=== PATIENT | male | born 1945 | race Caucasian/White ===

== ENCOUNTER 2018-07-13 14:50 | Inpatient (IN) | payer OTHER ==
[~2018-07-13] VITALS: Ht 170.2 cm; Wt 56.7 kg
[2018-07-13 14:50] VITALS: BP 131/87
[~2018-07-13 14:50] MED LIST: ADULT LOW DOSE81 MG PO; CLONIDINE0.1 PO; CRESTOR5 MG; DEXILANT60 MG PO; FLEXERIL PO; IBUPROFEN 200200 M1 PO; KEFLEX500 MG PO; LEVAQUIN 500 M500 M2 PO; LEVAQUIN 750 M750 MG PO; LIDODERM 5%1 PATCH TOP; LIPITOR 20 MG T20 M1 PO; MEGESTROL ACETA40 MG PO; MIRALAX17 GM PO; MIRALAX255 GM PO; NORVASC 5 MG TAB5 MG PO; OMEPRAZOLE 20 M20 MG PO; OXYCONTIN30 MG PO; PERCOCET 5-3251 EACH PO; PREDNISONE 10 M10 M1 PO; PREDNISONE 10 M10 MG PO; PRINIVIL5 MG PO; PROAIR HFA8.5 GM INH; PROVENTIL HFA6.7 G1 INH; REGLAN 5 MG TAB5 MG PO; REMERON15 MG PO; ROBAXIN 750 MG750 M1 PO; ROXICODONE30 MG PO; SPIRIVA INH; TRAZODONE HCL100 MG PO; VENTOLIN HFA 1818 GM INH; ZOFRAN ODT4 MG PO; ZPAK PO
[2018-07-13 15:06] LABS: HEMATOCRIT 40.8 % (42.0-52.0); HEMOGLOBIN 13.8 gm/dL (14.0-18.0); MCH 32.1 pg (26.0-34.0); MCHC 33.7 g/dL (28.0-37.0); MCV 95.2 fL (80.0-100.0); MPV 7.7 fl. (7.2-11.1); NUCLEATED RBCS 0 /100WBC; PLATELET COUNT* 212 thou/uL (150-400); RBC 4.29 mil/uL (4.50-6.00); WBC 6.3 thou/uL (4.0-11.0)
[2018-07-13 15:16] LABS: ANION GAP 2 mmol/L (7-16); BUN 18 mg/dL (7-18); CALCIUM 9.3 mg/dL (8.5-10.1); CHLORIDE 98 mmol/L (98-107); CO2 37 mmol/L (21-32); GLUCOSE 143 mg/dL (70-99); SODIUM 137 mmol/L (136-145)
[2018-07-13 15:17] LABS: APTT 26.2 Seconds (25.0-31.3); PROTIME 10.6 Seconds (9.20-11.50)
[2018-07-13 15:22] LABS: BE 5.4 mmol/L (-2 to +3); HCO3 31.4 mmol/L (22.0-26.0); PO2 103.7 mmHg (75.0-100.0); pH 7.401 (7.340-7.450)
[2018-07-13 15:24] LABS: ALKALINE PHOSPHATASE 86 U/L (46-116); SGOT 25 U/L (15-37); SGPT 20 U/L (30-65); TOTAL BILIRUBIN 0.4 mg/dL (<0.1-1.0); TOTAL PROTEIN 7.9 g/dL (6.4-8.2); TROPONIN-I LEVEL <0.06 ng/mL (<0.06)
[2018-07-13 15:25] LABS: PCO2 51.7 mmHg (35.0-45.0)
[2018-07-13 15:42] LABS: ABSOLUTE LYMPHOCYTES 0.5 thou/uL (0.8-5.3); ABSOLUTE MONOCYTES 0.1 thou/uL (0.0-1.2); ABSOLUTE NEUTROPHILS 5.7 thou/uL (1.6-8.1); PLATELET ESTIMATE ADEQUATE
[2018-07-13 18:30] VITALS: BP 128/66
[2018-07-13 18:58] VITALS: BP 104/64
--- NOTE | 2018-07-13 19:00 | NUR ---
PATIENT CAME TO THE FLOOR FROM THE ER VIA CART AND AMBULATED TO BED. GAIT WAS STEADY. VITAL SIGNS STABLE ON 4 LITERS OF OXYGEN. ROOM EDUCATION DONE AND BAX LUNCH GIVEN TO PATIENT. CALL LIGHT IS IN REACH, WILL PASS ON REPORT AND MONITOR UNTIL SHIFT CHANGE.
[2018-07-13] MEDS ORDERED: ZANAFLEX4 MG PO (20:13)
[2018-07-13] MEDS ORDERED: OXYCONTIN40 MG PO (20:15)
[2018-07-13] MEDS ORDERED: BUSPIRONE HCL10 MG (20:16)
[2018-07-13] MEDS ORDERED: PREDNISONE 10 M10 MG (20:18)
[2018-07-13] MEDS ORDERED: LASIX 20 MG TAB20 MG (20:28)
[2018-07-14] VITALS: BP 110/64
[2018-07-14 04:20] LABS: HEMATOCRIT 32.7 % (42.0-52.0); MCH 32.5 pg (26.0-34.0); MCHC 34.3 g/dL (28.0-37.0); MCV 94.9 fL (80.0-100.0); MPV 8.2 fl. (7.2-11.1); RBC 3.44 mil/uL (4.50-6.00); RDW-CV 13.7 % (10.5-14.5); WBC 4.4 thou/uL (4.0-11.0)
[2018-07-14 04:26] LABS: HEMOGLOBIN 11.2 gm/dL (14.0-18.0)
[2018-07-14 05:11] LABS: URINE BILIRUBIN NEGATIVE (Negative); URINE BLOOD NEGATIVE (Negative); URINE CLARITY CLEAR; URINE COLOR YELLOW; URINE GLUCOSE-RANDOM 1+ (Negative); URINE KETONES NEGATIVE (Negative); URINE LEUKOCYTES NEGATIVE (Negative); URINE NITRITE NEGATIVE (Negative); URINE PROTEIN NEGATIVE (Negative); URINE SPECIFIC GRAVITY <= 1.005 (1.005-1.030); URINE UROBILINOGEN 0.2 E.U./dl (0.2-1.0)
[2018-07-14 05:19] LABS: CALCIUM 8.9 mg/dL (8.5-10.1); CREATININE 0.9 mg/dL (0.6-1.3); POTASSIUM 4.1 mmol/L (3.5-5.1); TOTAL BILIRUBIN 0.3 mg/dL (<0.1-1.0); TOTAL PROTEIN 5.8 g/dL (6.4-8.2)
--- NOTE | 2018-07-14 06:52 | NUR ---
PT SLEPT WELL OVERNIGHT. RECEIVING PAIN MED AT HS WITH GOOD RESULT. O2 4LNC, RT TX GIVEN ORDERED. LAC IVF INFUSING PER PUMP, ABX GIVEN. USING URINAL TO VOID OVERNIGHT,URINE SENT TO LAB. AM LABS DRAWN. BED ALARM ON FOR SAFETY.
[2018-07-14 08:15] VITALS: BP 106/63
[2018-07-14 15:15] VITALS: BP 95/59
--- NOTE | 2018-07-14 16:16 | NUR ---
SW met with pt to complete initial assessment, introduce self, and SW role. Pt lives at home with his and dtr. Pt does not have any hx HH. Pt has oxygen at home, cane, nebulizer. Pt alert, oriented, pleasant. Pt doesn't anticipate any dc needs at this time. SW to continue to follow to assist with safe dc planning.
--- NOTE | 2018-07-14 17:32 | NUR ---
PATIENT IS ALERT AND ORIENTED TODAY PLEASANT BUT VERY ANXIOUS. MEDICATIONS GIVEN WITH SOME RELIEF, PATIENT WENT TO SLEEP. SOME COMPLAINTS OF PAIN THAT IS SOMEWHAT CONTROLLED WITH ORAL PAIN MEDICATIONS, CHRONIC PAIN. VITAL SIGNS HAVE BEEN STABLE ON 4 LITERS OF OXYGEN THROUGH NASAL CANNULA. CALL LIGHT IS IN REACH, WILL CONTINUE TO MONITOR.
--- NOTE | 2018-07-14 17:58 | EKG ---
[place] [address] ELECTROCARDIOGRAM REPORT Name: CASSY ARTEAGA Room: [address] ADM IN ..#: [id number] Admission: 07/13/18 Attend Phys: Carmela Senior MD Discharge: Date of : 45 Report #: [id number] THIS REPORT FOR: //name// [facility] ED Test Date: 2018-07-13 Test Time: 14:53:54 Pat Name: CASSY AMOSTZ Department: Room: [facility] Gender: Bandoleer Straightener Stamper: Abdi AWAD : 1945 Requested By: Gerri Wells Order Number: [id number] MD: Gucci Dougherty Measurements Intervals [place] Rate: 91 P: 82 PA: 144 QRS: 82 QRSD: 84 T: 22 QT: 354 QTc: 436 Interpretive Statements Sinus rhythm Ventricular bigeminy Borderline right axis deviation Compared to ECG 08/22/2017 19:26:36 Ventricular premature complex(es) now present Electronically Signed On 07-14-2018 17:58:19 CDT by Gucci Dougherty [email or web address] <ELECTRONICALLY SIGNED> By: Gucci Dougherty MD, FACC 07/14/18 1758 1453 1453 Gucci Dougherty MD, FAC /EPI
[2018-07-14 20:30] VITALS: BP 113/61
--- NOTE | 2018-07-15 05:13 | NUR ---
PATIENT SLEPT MOST OF THE NIGHT. IV REMAINS SALINE LOCKED. PATIENT REMAINS ON OXYGEN AT 4L PER NASAL CANNULA. WILL CONTINUE TO MONITOR.
[2018-07-15] MEDS ORDERED: AZITHROMYCIN 2250 MG PO (10:28)
[2018-07-15] MEDS ORDERED: PREDNISONE 5 MG5 M1 PO (10:29)
[2018-07-15 10:30] VITALS: BP 113/61
[2018-07-15 10:33] VITALS: BP 113/61
--- NOTE | 2018-07-15 11:26 | NUR ---
PATIENT HAS BEEN ALERT AND ORIENTED TODAY VERY PLEASANT HAVING SOME ANXIETY STILL. VITAL SIGNS STABLE ON 4 LITERS OF OXYGEN. PAIN THAT CHRONIC. PATIENT IS UP AD RENNY IN ROOM WITH OXYGEN TUBING EXTENSION. PATIETN IS BEING DISCHARGED TO HOME. DISCHARGE INSTRUCTIONS GIVEN WITH PRESCRIPTIONS, QUESTIONS ANSWERED FOR PATIENT AND FAMILY. LEFT VIA WHEELCHAIR WITH TO HOME. BROUGHT PATIENTS PORTABLE OXYGEN FOR THE RIDE HOME.
[2018-07-15 11:28] VITALS: BP 113/61
--- NOTE | 2018-07-17 08:18 | CON ---
[address] [address] CONSULTATION Name: ESTELITA ARTEAGAACE Abdi Room: [address] IN M.R.#: [id number] Admission: 07/13/18 Attend Phys: Carmela Senior MD Discharge: 07/15/18 Date of : 45 Report #: [id number] THIS REPORT FOR: //name// CC: Alyssa Senior REQUESTING PHYSICIAN: Carmela Senior MD REASON FOR CONSULTATION: Pleural thickening, evaluate for asbestos exposure. DISCUSSION: The patient is a 72-year-old man who has a history of tobacco abuse and COPD. He is steroid and O2 dependent. He usually follows with Dr. Crystal Mendez. He was admitted with several days of increasing shortness of breath. He may have had some fevers at home. Cough, but really not able to get up much mucus. No hemoptysis. He is up-to-date with his pneumonia vaccine and he just had his influenza vaccine. He felt worse than what he normally does and presented to the ED yesterday when he was subsequently admitted. I have none of his prior PFTs. He and his notes that he has been told that he has stage 3 (I presume GOLD stage 3). He is on O2 at 4 liters continuously at home. He is also on prednisone 10 mg a day. He uses Spiriva daily, has a nebulizer with albuterol that he does opt to least 3 times a day and carries an albuterol inhaler with him. In the past, he was on a Trelegy inhaler, though it did not offer him any additional benefit and he is no longer on that. Denies being on Symbicort, Advair, Dulera or Breo. He continues to smoke. He is somewhat vague as to the amount noting only that it is "occasional cigarette." His does not smoke. They do have other smokers at home, though that typically smoke in the garage. He has smoked at least a pack of cigarettes per day in the past. When he was evaluated yesterday in the ED, he did have a CT scan done of his chest. It showed marked emphysematous changes. It was negative for pulmonary embolism. However, he did have some mild pleural thickening noted with possible subtle calcification, thought to perhaps reflect asbestos-related pleural disease, which is only reason we were asked to see him. He does get short of breath with exertion. His breathing is somewhat better today relative to what it was. His secretions are quite thick. No hemoptysis. No actual chest pain though he does complain of abdominal pain. He believes he has a hernia, which is exacerbated when he is up moving around more. He has lost weight this year. Somewhat vague as to the amount. Typically does not have much appetite. Has some intermittent difficulty swallowing. He did deliveries. He believes he may have had asbestos exposure at one point when a building where a shed was torn down. 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 PAST MEDICAL HISTORY: Besides COPD is remarkable for chronic neck pain. He has had a fusion. He has difficulty trying to carry objects that are very heavy because of that. He has had hernia repair, is on chronic opiates. Prior scans have also showed dilated biliary tree. SOCIAL HISTORY: He is . Smoker as noted. Occupational exposure as noted above. FAMILY HISTORY: Positive for heart disease. REVIEW OF SYSTEMS: A 12-point ROS was done. No positives as above. He has had the weight loss. No recent nausea or vomiting. Denies any diarrhea or blood in the stools. Does have dysphagia. Also has trouble swallowing large pills. He has had a weight loss. He notes pain down his left lower quadrant when he is up walking more, believes due to hernia. No issues with lower extremity edema. No syncopal episodes. Secretions are quite thick. He is hard of hearing. PHYSICAL EXAMINATION: GENERAL APPEARANCE: A man, looks stated age, if not older. His is at the bedside. HEENT: Head is normocephalic. Sclerae nonicteric. Mucous membranes little dry. NECK: Negative for adenopathy. No JVD is noted. Neck muscles well developed. HEART: Tones are distant and regular. No S3 is heard. LUNGS: Show breath sounds to be diminished with a prolonged expiratory phase. Scattered expiratory wheezes heard. Excursion is equal. ABDOMEN: Soft. No definite hepatosplenomegaly is noted. EXTREMITIES: He has no clubbing. Lower extremities are negative for significant edema. He has no calf tenderness noted. SKIN: Warm and dry. NEUROLOGIC: Alert and oriented times 3. IMAGING DATA: His films were reviewed. He has marked emphysematous changes. He does have older CAT scans available. When these were reviewed, dating back several years ago, he has had some mild pleural thickening noted previously. Potential for some minimal calcification seen primarily on an area anteriorly, left hemithorax anteriorly. No dominant masses are noted. No significant pleural effusions. Echocardiogram done a year ago revealed normal systolic function with an EF of 60%-65%. Did have grade 1 diastolic dysfunction. RV was normal. LABORATORY DATA: On his chemistries: Potassium is 4.1, BUN 19, creatinine 0.9, albumin 3.0, total protein 5.8, white blood cell count 4400, hemoglobin 11.2, hematocrit 32.7, platelets are normal. Arterial blood gases done yesterday on [address] [place] [address] CONSULTATION Name: CASSY ARTEAGA Room: [address]#: [id number] Admission: 07/13/18 Attend Phys: Carmela Senior MD Discharge: 07/15/18 Date of : 45 Report #: [id number] L. He had a pH 7.40, pCO2 of 52, pO2 104, bicarbonate of 31 with saturation 95%. Carboxyhemoglobin was 2.4%. IMPRESSION: 1. Chronic obstructive pulmonary disease exacerbation. Remains bronchospastic. 2. Chronic obstructive pulmonary disease. At baseline, he appears to have severe disease. He is steroid and O2 dependent. He is also hypercapnic and hypoxic. 3. Mild pleural thickening. No evidence of mesothelioma. 4. Weight loss, may have pulmonary cachexia. 5. Tobacco abuse. He is not smoking nearly as much as what he has in the past. However, continued smoking will certainly contribute to more frequent infections, as well as accelerated decline and worsening of his underlying chronic obstructive pulmonary disease. 6. History of hypertension. RECOMMENDATIONS: 1. Complete smoking cessation. 2. While he is here, continue with IV steroids. Add oral guaifenesin. He has trouble with the pill, so we will use liquid. 3. DuoNeb every 4 hours. 4. IV steroids. 5. Note he has followup appointment scheduled for early July with his primary board saw runner and Dr. Lozano, his boat motor mechanic and he will keep those appointments once he is discharged. <ELECTRONICALLY SIGNED> By: Lacey Mckeon MD 07/17/18 0818 1228 0354Lacey Mckeon MD /nt
== END 2018-07-15 11:35 | disposition home or self-care (01) | DRG 189 ==
LOC: M.ERS 14:50 → M.3W 17:45 → M.TBA-ER 17:45 → M.3W 18:46
PROVIDERS: Nurse Practitioner Family; ADMIT Internal Medicine
DX: J96.21 Acute and chronic respiratory failure with hypoxia (principal); J44.1 Chronic obstructive pulmonary disease with (acute) exacerbation; J96.22 Acute and chronic respiratory failure with hypercapnia; F41.9 Anxiety disorder, unspecified; F17.210 Nicotine dependence, cigarettes, uncomplicated; I10 Essential (primary) hypertension; M47.9 Spondylosis, unspecified; Z79.82 Long term (current) use of aspirin; Z88.8 Allergy status to other drugs, medicaments and biological substances; Z99.81 Dependence on supplemental oxygen; Z87.442 Personal history of urinary calculi; Z82.49 Family history of ischemic heart disease and other diseases of the circulatory system; Z71.6 Tobacco abuse counseling; Z87.01 Personal history of pneumonia (recurrent); Z98.1 Arthrodesis status

== ENCOUNTER 2018-08-09 14:20 | Emergency (ER) | payer OTHER ==
[~2018-08-09] VITALS: Ht 170.2 cm; Wt 52.2 kg
[~2018-08-09 14:20] MED LIST changes: +AZITHROMYCIN 2250 MG PO; +BUSPIRONE HCL10 MG; +LASIX 20 MG TAB20 MG; +OXYCONTIN40 MG PO; +PREDNISONE 10 M10 MG; +PREDNISONE 5 MG5 M1 PO; +ZANAFLEX4 MG PO
[2018-08-09] MEDS ORDERED: OMEPRAZOLE40 MG PO (14:39)
[2018-08-09] MEDS ORDERED: TRELEGY ELLIPT1 EACH INH (14:39)
[2018-08-09 15:43] LABS: ABSOLUTE BASOPHILS 0.1 thou/uL (0.0-0.2); ABSOLUTE LYMPHOCYTES 1.5 thou/uL (0.8-5.3); ABSOLUTE MONOCYTES 0.7 thou/uL (0.0-1.2); ABSOLUTE NEUTROPHILS 10.8 thou/uL (1.6-8.1); BASOPHILS 0.7 %; EOSINOPHILS 0.3 %; HEMATOCRIT 43.9 % (42.0-52.0); HEMOGLOBIN 14.5 gm/dL (14.0-18.0); LYMPHOCYTES 11.1 %; MCH 31.4 pg (26.0-34.0); MCHC 33.1 g/dL (28.0-37.0); MCV 94.9 fL (80.0-100.0); MONOCYTES 5.4 %; MPV 7.8 fl. (7.2-11.1); NUCLEATED RBCS 0 /100WBC; PLATELET COUNT* 289 thou/uL (150-400); POLYS 82.5 %; RBC 4.62 mil/uL (4.50-6.00); WBC 13.1 thou/uL (4.0-11.0)
[2018-08-09 15:56] LABS: APTT 25.4 Seconds (25.0-31.3); PROTIME 10.7 Seconds (9.20-11.50)
[2018-08-09 15:57] LABS: ANION GAP 11 mmol/L (7-16); BUN 19 mg/dL (7-18); CALCIUM 9.6 mg/dL (8.5-10.1); CHLORIDE 98 mmol/L (98-107); CO2 30 mmol/L (21-32); CREATININE 1.1 mg/dL (0.6-1.3); GLUCOSE 95 mg/dL (70-99); POTASSIUM 3.8 mmol/L (3.5-5.1); SODIUM 139 mmol/L (136-145)
[2018-08-09 16:15] LABS: ALBUMIN 4.3 g/dL (3.4-5.0); ALKALINE PHOSPHATASE 101 U/L (46-116); LIPASE 89 U/L (73-393); NT-PRO BRAIN NAT PEPTIDE 504 pg/mL (<300); SGOT 29 U/L (15-37); SGPT 19 U/L (30-65); TOTAL BILIRUBIN 0.6 mg/dL (<0.1-1.0); TOTAL PROTEIN 7.9 g/dL (6.4-8.2); TROPONIN-I LEVEL <0.06 ng/mL (<0.06)
--- NOTE | 2018-08-09 17:40 | EKG ---
[place] [address] ELECTROCARDIOGRAM REPORT Name: CASSY ARTEAGA Room: [facility]#: [id number] Admission: 08/09/18 Attend Phys: Discharge: Date of : 45 Report #: [id number] THIS REPORT FOR: //name// [facility] ED Test Date: 2018-08-09 Test Time: 14:28:56 Pat Name: CASSY AMOSTZ Department: Room: Gender: Weaver Hand: : 1945 Requested By: Carol Potts Order Number: [id number] MD: Gucci Dougherty Measurements Intervals [place] Rate: 100 P: 83 MN: 125 QRS: 84 QRSD: 100 T: -8 QT: 323 QTc: 417 Interpretive Statements Sinus tachycardia Multiple ventricular premature complexes Borderline right axis deviation Borderline T abnormalities, inferior leads Compared to ECG 07/13/2018 14:53:54 Sinus rhythm no longer present Electronically Signed On 08-09-2018 17:39:58 CREATIVE CONSULTANT by Gucci Dougherty [email or web address] <ELECTRONICALLY SIGNED> By: Gucci Dougherty MD, [facility] 08/09/18 1739 1428 142 Gucci Dougherty MD, FACC /EPI
[2018-08-09] MEDS ORDERED: ATIVAN0.5 M1 PO (18:33)
[2018-08-09 18:55] VITALS: BP 171/96
== END 2018-08-09 18:56 | disposition home or self-care (01) ==
LOC: M.ERS 14:20
PROVIDERS: Personal Emergency Response Attendant
DX: F41.9 Anxiety disorder, unspecified (principal); J44.9 Chronic obstructive pulmonary disease, unspecified; F17.210 Nicotine dependence, cigarettes, uncomplicated; Z88.8 Allergy status to other drugs, medicaments and biological substances

== ENCOUNTER 2018-08-23 13:54 | Inpatient (IN) | payer OTHER ==
[~2018-08-23] VITALS: Ht 170.2 cm; Wt 54.9 kg
[~2018-08-23 13:54] MED LIST changes: +ATIVAN0.5 M1 PO; -BUSPIRONE HCL10 MG; +BUSPIRONE HCL10 MG PO; -LASIX 20 MG TAB20 MG; +LASIX 20 MG TAB20 MG PO; +OMEPRAZOLE40 MG PO; +TRELEGY ELLIPT1 EACH INH
[2018-08-23 14:09] VITALS: BP 158/79
[2018-08-23 14:30] LABS: HEMATOCRIT 41.5 % (42.0-52.0); HEMOGLOBIN 13.9 gm/dL (14.0-18.0); MCH 31.7 pg (26.0-34.0); MCHC 33.4 g/dL (28.0-37.0); MCV 94.8 fL (80.0-100.0); MPV 7.3 fl. (7.2-11.1); NUCLEATED RBCS 0 /100WBC; PLATELET COUNT* 289 thou/uL (150-400); RBC 4.38 mil/uL (4.50-6.00); RDW-CV 13.4 % (10.5-14.5); WBC 9.5 thou/uL (4.0-11.0)
[2018-08-23 14:39] LABS: ANION GAP 8 mmol/L (7-16); BUN 14 mg/dL (7-18); CALCIUM 9.5 mg/dL (8.5-10.1); CHLORIDE 97 mmol/L (98-107); CO2 35 mmol/L (21-32); GLUCOSE 97 mg/dL (70-99); POTASSIUM 3.7 mmol/L (3.5-5.1); SODIUM 140 mmol/L (136-145)
[2018-08-23 14:42] LABS: APTT 24.9 Seconds (25.0-31.3); PROTIME 10.1 Seconds (9.20-11.50)
[2018-08-23 14:52] LABS: ALBUMIN 3.8 g/dL (3.4-5.0); ALKALINE PHOSPHATASE 96 U/L (46-116); LIPASE 85 U/L (73-393); NT-PRO BRAIN NAT PEPTIDE 350 pg/mL (<300); SGOT 18 U/L (15-37); SGPT 18 U/L (30-65); TOTAL BILIRUBIN 0.5 mg/dL (<0.1-1.0); TOTAL PROTEIN 7.2 g/dL (6.4-8.2); TROPONIN-I LEVEL <0.06 ng/mL (<0.06)
[2018-08-23 15:04] LABS: ABSOLUTE LYMPHOCYTES 0.7 thou/uL (0.8-5.3); ABSOLUTE MONOCYTES 0.6 thou/uL (0.0-1.2); ABSOLUTE NEUTROPHILS 8.3 thou/uL (1.6-8.1); ATYPICAL MONONUCLEARS 4 %; PLATELET ESTIMATE ADEQUATE
[2018-08-23 18:16] VITALS: BP 154/80
[2018-08-23 18:40] VITALS: BP 151/79
[2018-08-23 20:00] VITALS: BP 157/79
[2018-08-23 20:30] LABS: BE 6.1 mmol/L (-2 to +3); PCO2 45.7 mmHg (35.0-45.0); PO2 106.1 mmHg (75.0-100.0); pH 7.449 (7.340-7.450)
[2018-08-24] VITALS: BP 114/66
[2018-08-24 02:29] LABS: ABSOLUTE EOSINOPHILS 0.1 thou/uL (0.0-0.7); ABSOLUTE LYMPHOCYTES 0.5 thou/uL (0.8-5.3); ABSOLUTE MONOCYTES 0.2 thou/uL (0.0-1.2); ABSOLUTE NEUTROPHILS 6.6 thou/uL (1.6-8.1); BASOPHILS 0.3 %; EOSINOPHILS 0.8 %; HEMATOCRIT 34.8 % (42.0-52.0); LYMPHOCYTES 7.1 %; MCH 31.8 pg (26.0-34.0); MCHC 33.7 g/dL (28.0-37.0); MCV 94.4 fL (80.0-100.0); MONOCYTES 2.4 %; MPV 6.8 fl. (7.2-11.1); NUCLEATED RBCS 0 /100WBC; PLATELET COUNT* 230 thou/uL (150-400); POLYS 89.4 %; RBC 3.69 mil/uL (4.50-6.00); RDW-CV 13.2 % (10.5-14.5); WBC 7.4 thou/uL (4.0-11.0)
[2018-08-24 02:36] LABS: CREATININE 0.9 mg/dL (0.6-1.3); MAGNESIUM 2.5 mg/dL (1.8-2.4); POTASSIUM 4.1 mmol/L (3.5-5.1)
[2018-08-24 03:19] LABS: HEMOGLOBIN 11.7 gm/dL (14.0-18.0)
[2018-08-24 04:00] VITALS: BP 136/60
[2018-08-24 07:50] VITALS: BP 117/59
[2018-08-24 11:42] VITALS: BP 103/61
[2018-08-24 16:02] VITALS: BP 148/84
--- NOTE | 2018-08-24 17:44 | EKG ---
[place] [address] ELECTROCARDIOGRAM REPORT Name: CASSY ARTEAGA Room: [address] ADM IN M.R.#: [id number] Admission: 08/23/18 Attend Phys: Zander Coburn MD Discharge: Date of : 45 Report #: [id number] THIS REPORT FOR: //name// [facility] ED Test Date: 2018-08-23 Test Time: 13:59:18 Pat Name: CASSY ARTEAGA Department: Room: [facility] Gender: M Manager Food Beverage: : 1945 Requested By: Carol Potts Order Number: [id number] MD: Mario Benitez Measurements Intervals [place] Rate: 88 P: 75 FL: 179 QRS: 80 QRSD: 98 T: 12 QT: 350 QTc: 424 Interpretive Statements Sinus rhythm Ventricular premature complex Compared to ECG 08/09/2018 14:28:56 Sinus tachycardia no longer present T-wave abnormality no longer present Electronically Signed On 08-24-2018 17:44:13 TIMBER SIZER OPERATOR by Mario Benitez [email or web address] <ELECTRONICALLY SIGNED> By: Mario Benitez MD, FACC 08/24/18 1744 1359 1359 Mario Benitez MD, FAC /EPI
--- NOTE | 2018-08-24 17:47 | EKG ---
[place] [address] ELECTROCARDIOGRAM REPORT Name: CASSY ARTEAGA Room: [address] ADM IN M.R.#: [id number] Admission: 08/23/18 Attend Phys: Zander Coburn MD Discharge: Date of : 45 Report #: [id number] THIS REPORT FOR: //name// [facility] Test Date: 2018-08-24 Test Time: 03:28:48 Pat Name: CASSY ARTEAGA Department: Room: [address] Gender: M Complaint Adjuster: : 1945 Requested By: Zander Coburn Order Number: [id number] Reading MD: Mario Benitez Measurements Intervals [place] Rate: 68 P: 81 VT: 135 QRS: 83 QRSD: 102 T: 44 QT: 422 QTc: 449 Interpretive Statements Sinus rhythm Borderline right axis deviation Minimal ST elevation, anterior leads, consider early repolarization Compared to ECG 08/09/2018 14:28:56 ST (T wave) deviation now present Sinus tachycardia no longer present Ventricular premature complex(es) no longer present T-wave abnormality no longer present Electronically Signed On 08-24-2018 17:47:40 POT RELINER by Mario Benitez [email or web address] <ELECTRONICALLY SIGNED> By: Mario Benitez MD, FACC 08/24/18 1747 0328 0328 Mario Benitez MD, FACC /EPI
[2018-08-24 20:00] VITALS: BP 126/70
[2018-08-25] VITALS: BP 103/56
[2018-08-25 04:00] VITALS: BP 109/61
[2018-08-25 08:00] VITALS: BP 152/53
[2018-08-25] MEDS ORDERED: AZITHROMYCIN 2250 MG PO ×2 (11:33)
[2018-08-25] MEDS ORDERED: SENNA PLUS TAB1 EACH PO ×2 (11:34)
[2018-08-25 12:25] VITALS: BP 101/54
[2018-08-25 12:31] VITALS: BP 101/54
--- NOTE | 2018-08-26 06:30 | CON ---
[address] [address] CONSULTATION Name: CASSY ARTEAGA Room: [address] IN .R.#: [id number] Admission: 08/23/18 Attend Phys: Zander Coburn MD Discharge: 08/25/18 Date of : 45 Report #: [id number] THIS REPORT FOR: //name// CC: Alyssa Coburn REQUESTING PHYSICIAN: Dr. Coburn. REASON FOR CONSULTATION: Shortness of breath, COPD, chest pain. DISCUSSION: The patient is a 72-year-old male with long history of tobacco abuse and significant COPD. He notes his last cigarette was about a week ago. He was hospitalized here in June and our group did see him at that time. He has had at least one additional ED visit since that hospital stay. He presented to the Emergency Department yesterday afternoon with complaints of shortness of breath. He notes he was having trouble getting his air. He took a breathing treatment without any improvement. He has also been having chest pain. He is not the best historian. At times, he tends to ramble. He notes he has been having the chest pain. He points to his mid chest, notes it would radiate up to his left shoulder and left neck area. When asked what may bring it on or make it worse, he noted activity and that if he stops what he was doing, it did improve. It has not awoken him at night. He has some cough with scant sputum production. No hemoptysis. He has intermittently been wheezing. Unfortunately, he really cannot tell me exactly what inhalers he uses at home. He is on O2 18/04. He follows with Dr. Crystal Mendez from a Pulmonary Service. He does have a nebulizer. I presume it is at least albuterol if not combination of albuterol and ipratropium bromide or any steroid dependent in addition being O2 dependent. He notes he has been told that he has severe disease. At the time I saw him this morning, he was feeling much better. He notes there has been significant improvement relative to since he has come in the hospital. He has been on IV steroids and given scheduled neb treatments. He has a long history of significant tobacco abuse, smoked at least a pack of cigarettes per day. had been cutting down. He notes his last cigarette was a week ago. His has been a smoker, though she has quit smoking this fall as well. He is up-to-date with his immunizations. He has had no prior history of thromboembolic disease. When he was here in June, CT angiogram done of his chest was negative for PE. Did show the emphysematous changes. Also had some very mild pleural thickening noted and some areas of calcification, which could be an early pleural plaque. PAST MEDICAL HISTORY: Remarkable for very severe COPD. He is on chronic narcotics for chronic neck pain related to a prior injury [place] [address] CONSULTATION Name: CASSY ARTEAGA Room: [address] IN [facility].#: [id number] Admission: 08/23/18 Attend Phys: Zander Coburn MD Discharge: 08/25/18 Date of : 45 Report #: [id number] fusions. He has had prior hernia repair. SOCIAL HISTORY: He is . History of tobacco abuse is noted. 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 FAMILY HISTORY: Positive for heart disease. REVIEW OF SYSTEMS: ROS was done. Note positives above. In the past, he did have substantial weight loss. He was able to gain some of that weight back. It has been remaining stable here recently. His appetite has been fairly good. Denies any difficulty swallowing. Not having any indigestion, heartburn. Denies any hematemesis, blood in the stools. No syncopal episodes. He does get fairly dyspneic with just limited exertion. He has not been waking up at night short of breath, however. From his description, he does have a concentrator at home, is on the O2, 24/7, but is not on any type of noninvasive ventilation or CPAP machine. Denies any recent GI issues. It is otherwise, negative. PHYSICAL EXAMINATION: GENERAL APPEARANCE: A male who looks chronically ill. Just finished eating his breakfast, was sitting up in the chair. He was alert, conversant. A poor historian. HEENT: Head is normocephalic. Sclerae nonicteric. Mucous membranes dry. NECK: Negative for adenopathy. No JVD is noted. HEART: Regular. Tones are somewhat distant. No S3 is heard. He has a grade 1-2/6 systolic murmur. LUNGS: Show breath sounds to be markedly diminished. He has prolonged expiratory phase. He does have some late expiratory wheezes heard. No CVA tenderness. ABDOMEN: Soft without hepatosplenomegaly, no guarding or rebound tenderness noted. EXTREMITIES: He has no clubbing. Arthritic changes noted of his hands. Radial pulses are present. On his lower extremities, he does have trace edema. SKIN: Warm and dry. NEUROLOGIC: He is alert and oriented x 3. Again, however, not a very good historian. LABORATORY AND X-RAY FINDINGS: Chest x-ray shows changes of hyperinflation, some flattening of hemidiaphragms. No acute infiltrates are noted. Arterial blood gases done yesterday, he had a pH of 7.45, pCO2 of 46, pO2 of 106, bicarbonate of 31 with a saturation of 97%. Chemistry profiles: BUN of 15, creatinine 0.9, potassium is 4.1. Transaminases were normal. ProBNP was 350. White blood cell count 7400, hemoglobin 11.7, hematocrit 34.8, platelets are normal. Echocardiogram 2013 did show preserved LV function with no [place] [address] CONSULTATION Name: CASSY ARTEAGA Room: [address]#: [id number] Admission: 08/23/18 Attend Phys: Zander Coburn MD Discharge: 08/25/18 Date of : 45 Report #: [id number] IMPRESSION: 1. Chronic obstructive pulmonary disease exacerbation, improved. Baseline appears to have very severe disease based on his description. He is steroid and O2 dependent. 2. Ongoing tobacco abuse. 3. Chest pain. Currently, he is pain free. Description of his pain appears to vary somewhat between descriptions given to various physicians. Could be chest wall, related to his increased work of breathing. He is at risk for underlying heart disease given his long tobacco use history. 4. Chronic respiratory failure. He is on O2 chronically. He does have some mild hypercapnia, which appears chronic. RECOMMENDATIONS: 1. Agree with current regimen. 2. We will add Brovana twice a day. He is probably on a long-acting beta agonist at home, so we will continue with that while he is here. 3. Hopefully can be discharged home in a few days. May benefit from a higher/slower taper back to his baseline prednisone dose. 4. Note, he is a DNR. Continue order that. At some point, he may be a hospice candidate. <ELECTRONICALLY SIGNED> By: Lacey Mckeon MD 08/26/18 0630 1328 1623Lacey Mckeon MD /nt
== END 2018-08-25 16:30 | disposition home health service (06) | DRG 189 ==
LOC: M.ERS 13:54 → M.2W 16:58 → M.TBA-ER 16:58 → M.2W 18:25
PROVIDERS: Personal Emergency Response Attendant; ADMIT Family Medicine
PROC: 5A09357 Assistance with Respiratory Ventilation, Less than 24 Consecutive Hours, Continuous Positive Airway Pressure (ICD-10-PCS; principal; 2018-08-23)
PROC: 5A09357 Assistance with Respiratory Ventilation, Less than 24 Consecutive Hours, Continuous Positive Airway Pressure (ICD-10-PCS; 2018-08-24)
DX: J96.22 Acute and chronic respiratory failure with hypercapnia (principal); J44.1 Chronic obstructive pulmonary disease with (acute) exacerbation; I50.32 Chronic diastolic (congestive) heart failure; E44.0 Moderate protein-calorie malnutrition; Z68.1 Body mass index [BMI] 19.9 or less, adult; F41.9 Anxiety disorder, unspecified; G89.29 Other chronic pain; M54.2 Cervicalgia; Z66 Do not resuscitate; F17.210 Nicotine dependence, cigarettes, uncomplicated; M54.9 Dorsalgia, unspecified; K59.09 Other constipation; D64.9 Anemia, unspecified; Z87.442 Personal history of urinary calculi; Z79.891 Long term (current) use of opiate analgesic; Z88.8 Allergy status to other drugs, medicaments and biological substances; Z79.52 Long term (current) use of systemic steroids; Z99.81 Dependence on supplemental oxygen; Z79.899 Other long term (current) drug therapy

== ENCOUNTER 2018-08-30 01:21 | Inpatient (IN) | payer OTHER ==
[2018-08-30] VITALS (7 sets, daily range): BP systolic 112–146; BP diastolic 53–106
[~2018-08-30] VITALS: Ht 170.2 cm; Wt 57.2 kg
[~2018-08-30 01:21] MED LIST changes: +SENNA PLUS TAB1 EACH PO
[2018-08-30 01:58] LABS: ABSOLUTE EOSINOPHILS 0.2 thou/uL (0.0-0.7); ABSOLUTE LYMPHOCYTES 1.4 thou/uL (0.8-5.3); ABSOLUTE MONOCYTES 0.6 thou/uL (0.0-1.2); ABSOLUTE NEUTROPHILS 6.1 thou/uL (1.6-8.1); BASOPHILS 0.2 %; EOSINOPHILS 2.7 %; HEMATOCRIT 34.5 % (42.0-52.0); HEMOGLOBIN 11.9 gm/dL (14.0-18.0); LYMPHOCYTES 16.5 %; MCH 32.5 pg (26.0-34.0); MCHC 34.6 g/dL (28.0-37.0); MCV 94.1 fL (80.0-100.0); MONOCYTES 6.7 %; MPV 7.6 fl. (7.2-11.1); NUCLEATED RBCS 0 /100WBC; PLATELET COUNT* 202 thou/uL (150-400); POLYS 73.9 %; RBC 3.66 mil/uL (4.50-6.00); RDW-CV 13.7 % (10.5-14.5); WBC 8.3 thou/uL (4.0-11.0)
[2018-08-30 02:01] LABS: ANION GAP 8 mmol/L (7-16); BUN 15 mg/dL (7-18); CALCIUM 8.1 mg/dL (8.5-10.1); CHLORIDE 102 mmol/L (98-107); CO2 33 mmol/L (21-32); CREATININE 0.9 mg/dL (0.6-1.3); GLUCOSE 148 mg/dL (70-99); SODIUM 143 mmol/L (136-145)
[2018-08-30 02:04] LABS: POTASSIUM 2.9 mmol/L (3.5-5.1); PROTIME 10.3 Seconds (9.20-11.50)
[2018-08-30 02:12] LABS: ALBUMIN 2.9 g/dL (3.4-5.0); ALKALINE PHOSPHATASE 75 U/L (46-116); LIPASE 110 U/L (73-393); NT-PRO BRAIN NAT PEPTIDE 271 pg/mL (<300); SGOT 21 U/L (15-37); SGPT 18 U/L (30-65); TOTAL BILIRUBIN 0.2 mg/dL (<0.1-1.0); TOTAL PROTEIN 5.8 g/dL (6.4-8.2); TROPONIN-I LEVEL <0.06 ng/mL (<0.06)
[2018-08-30 03:20] LABS: BE 6.2 mmol/L (-2 to +3); HCO3 32.3 mmol/L (22.0-26.0); PO2 67.3 mmHg (75.0-100.0); pH 7.399 (7.340-7.450)
[2018-08-30 04:53] LABS: AMP/METHAMP Negative (Negative); BARBITURATES Negative (Negative); BENZODIAZEPINES POSITIVE (Negative); COCAINE Negative (Negative); METHADONE Negative (Negative); OPIATES POSITIVE (Negative); PCP Negative (Negative); THC Negative (Negative)
[2018-08-30 04:54] LABS: URINE BILIRUBIN NEGATIVE (Negative); URINE BLOOD NEGATIVE (Negative); URINE CLARITY CLEAR; URINE COLOR YELLOW; URINE GLUCOSE-RANDOM TRACE (Negative); URINE KETONES NEGATIVE (Negative); URINE LEUKOCYTES-REFLEX NEGATIVE (Negative); URINE NITRITE-REFLEX NEGATIVE (Negative); URINE PROTEIN NEGATIVE (Negative); URINE UROBILINOGEN 0.2 E.U./dl (0.2-1.0)
[2018-08-30 05:13] LABS: PCO2 53.5 mmHg (35.0-45.0)
--- NOTE | 2018-08-30 10:13 | EKG ---
[place] [address] ELECTROCARDIOGRAM REPORT Name: CASSY ARTEAGA Room: [address] ADM IN .R.#: [id number] Admission: 08/30/18 Attend Phys: Shaina Herrera Discharge: Date of : 45 Report #: [id number] THIS REPORT FOR: //name// [facility] ED Test Date: 2018-08-30 Test Time: 01:52:20 Pat Name: CASSY AMOSTZ Department: Room: [facility] Gender: Medical Physics Professor: MONICA : 1945 Requested By: Asya Patel Order Number: [id number] MD: Gucci Dougherty Measurements Intervals [place] Rate: 85 P: 82 RI: 143 QRS: 82 QRSD: 94 T: 22 QT: 368 QTc: 438 Interpretive Statements Sinus rhythm Borderline right axis deviation Baseline wander in lead(s) V1,V2 Compared to ECG 08/24/2018 03:28:48 no change Electronically Signed On 08-30-2018 10:13:30 SENIOR NETWORK ENGINEER by Gucci Dougherty [email or web address] <ELECTRONICALLY SIGNED> By: Gucci Dougherty MD, [facility] 08/30/18 1013 0152 0152 Gucci Dougherty MD, [facility] /EPI
[2018-08-31] VITALS: BP 112/85
[2018-08-31 04:00] VITALS: BP 135/58
[2018-08-31 08:00] VITALS: BP 141/59
[2018-08-31 12:00] VITALS: BP 138/69
[2018-08-31 13:52] VITALS: BP 138/69
== END 2018-08-31 14:21 | disposition home health service (06) | DRG 917 ==
LOC: M.ERS 01:21 → M.2W 05:42 → M.TBA-ER 05:42 → M.2W 05:52
PROVIDERS: Emergency Medicine; ADMIT Internal Medicine
DX: T40.2X1A Poisoning by other opioids, accidental (unintentional), initial encounter (principal); G92 Toxic encephalopathy; J96.02 Acute respiratory failure with hypercapnia; J96.01 Acute respiratory failure with hypoxia; F19.20 Other psychoactive substance dependence, uncomplicated; J44.9 Chronic obstructive pulmonary disease, unspecified; K59.00 Constipation, unspecified; K21.9 Gastro-esophageal reflux disease without esophagitis; F41.9 Anxiety disorder, unspecified; Z87.442 Personal history of urinary calculi; Z88.8 Allergy status to other drugs, medicaments and biological substances; Z87.891 Personal history of nicotine dependence; Y92.89 Other specified places as the place of occurrence of the external cause; Z79.899 Other long term (current) drug therapy